=== PATIENT | female | born 1970 | race Caucasian/White ===

== ENCOUNTER → 2018-09-23 18:30 | Outpatient (CLI) | payer BC | END | disposition home or self-care (01) | LOC: D.MAMMO 14:15 | DX: Z12.31 Encounter for screening mammogram for malignant neoplasm of breast (principal) ==

== ENCOUNTER 2020-03-24 09:35 | Day surgery (SDC) | payer BC ==
[2020-03-23 11:34] LABS: HEMATOCRIT 39.3 % (36.0-48.0); HEMOGLOBIN 12.5 g/dL (12-16); MCH 28.6 pg (26.0-34.0); MCHC 31.8 g/dL (31.0-37.0); MCV 89.9 fL (80.0-100.0); MEAN PLATELET VOLUME 8.8 fL (7.4-10.4); RBC 4.37 10x6/uL (4.00-5.40); WBC 8.7 10x3/uL (4.8-10.8)
[~2020-03-24] VITALS: Ht 172.7 cm; Wt 94.8 kg
[~2020-03-24 09:35] MED LIST: CLARITIN 10 MG10 MG PO; MULTI-DAY VITAM1 TAB PO; PROZAC40 MG PO; SYMBICORT 16010.2 GM INH
[2020-03-24 10:09] VITALS: BP 136/81; Ht 172.7 cm; Wt 94.8 kg
[2020-03-24 10:22] LABS: HCG URINE NEGATIVE (NEGATIVE)
[2020-03-24] MEDS ORDERED: PERCOCET 5-3251 TAB PO (13:24)
[2020-03-24] MEDS ORDERED: VISTARIL50 MG PO (13:25)
[2020-03-24] MEDS ORDERED: TORADOL10 MG PO (13:25)
[2020-03-24] MEDS ORDERED: ZOFRAN ODT4 MG/UDTAB PO (13:25)
--- NOTE | 2020-03-24 14:46 | NUR ---
DC INSTRUCTIONS GIVEN TO PT. STATES UNDERSTANDING. DC'D IV CATH FULLY INTACT.
--- NOTE | 2020-03-24 15:00 | NUR ---
PT IS DRESSED AND READY TO BE DC'D. WAITING FOR TO PICK HER UP. I CALLED AFTER PT ARRIVED TO OPS TO LET HIM KNOW THAT SHE'LL BE READY TO BE DC'D AT ABOUT [id number]. HE SAID HE WILL CALL WHEN HE IS AT THE FRONT ENTRANCE. WILL CONTINUE TO MONITOR.
--- NOTE | 2020-03-24 15:04 | NUR ---
PT LEFT UNIT VIA WC AT 1510
--- NOTE | 2020-03-25 10:34 | OP ---
PATIENT NAME: GERSON EDWARDS MEDICAL RECORD: [id number] :68 LOCATION:[facility] ADMISSION DATE: SURGEON: ARNEL PALOMARES DO DATE OF OPERATION: 03/24/2020 PROCEDURE PERFORMED: Right shoulder arthroscopy with subacromial decompression, distal clavicle excision, biceps tenodesis. PREOPERATIVE DIAGNOSES: Right shoulder subacromial impingement, AC joint arthritis, and SLAP tear. POSTOPERATIVE DIAGNOSES: Right shoulder subacromial impingement, AC joint arthritis, and SLAP tear. INDICATIONS: Ms. Leo Dos Santos is a 49-year-old female who has had right shoulder pain for quite some time. She has tried all manner of nonoperative treatment including physical therapy and injections to no avail. She had an MRI, which showed a type 2 acromion. It did not show a SLAP tear, but she had symptoms of it. When she did do all that and failed conservative management, she wants something done surgically as it was bothering her and affecting her activities of daily living. She is aware of the risks including infection, bleeding, damage to nerves and vessels, need for further surgery, continued pain, frozen shoulder, any other problems and she signed the consent. SURGEON: Arnel Palomares DO DESCRIPTION OF PROCEDURE: The patient had block by anesthesia preoperatively and taken to the operative suite, given 900 mg of clindamycin preoperatively in the left lateral decubitus position with the right shoulder up. She was sedated and LMA was placed. Right shoulder was then prepped and draped in sterile fashion. A timeout was performed and everyone was in agreement with correct side, site, patient and procedure. I then inserted an 18-gauge needle into the posterior aspect of the shoulder into the shoulder joint and inflated it with 60 mL normal saline then established a posterior portal with an 11-blade scalpel. Trocar was then entered into the shoulder joint had somewhat difficulty getting into it and then I switched to another portal slightly more lateral and got into the shoulder joint somewhat easier. The anterior portals had been established. An 18-gauge spinal needle and 11-blade scalpel at that time, and once that was established, a burner was brought in and a biceps tenotomy was performed noting the type 2 SLAP tear. The rotator cuffs were inspected subscapularis, supraspinatus and infraspinatus were all intact. There was no cartilage loss on the glenoid or the humerus. We then entered the subacromial space. An 18-gauge spinal needle was used to establish a lateral portal with a #11 blade scalpel. We then brought in the ayo and a shaver. Subacromial decompression was performed with acromioplasty. There was a type 2 acromion, which I took off that spur and then the AC joint was opened up also by resecting the distal clavicle; opened up the AC joint to approximately 7 mm. I then debrided the bursa and inspected the rotator cuff on the bursal side. No tears were seen. I then addressed the tenodesis. An incision was made on the anterior humerus. Careful dissection was made down to the long head of the biceps tendon. It was pulled out through the incision. A 2.9 Juggerloc anchor was then put in and the tendon was put through the loop and tensioned in full and the loop was secured down to the humerus. I then cut the excess suture took us a free needle and went back through the tendon and tied that down and then cut the excess tendon and suture. This was then irrigated and Mat Yang, certified surgical first OPERATIVE REPORT [id number] GERSON EDWARDS content assistant then closed the portal sites with 4-0 Monocryl in an inverted interrupted fashion and dressed with Dermabond and then the biceps tenodesis site was closed with 2-0 Vicryl in inverted interrupted fashion, 4-0 Monocryl ran on the skin in a subcuticular fashion and then Dermabond. She was then dressed with Telfa and Tegaderm and she was awakened, put in a sling and taken to recovery in stable condition. ESTIMATED BLOOD LOSS: Minimal. SPECIMENS: None. TRANSINT:[id number] Voice Confirmation ID: [id number] DOCUMENT ID: [id number] ARNEL PALOMARES DO at 1034 CC: [id number] DICTATION DATE: 03/24/20 1423 MOTORCYCLE MECHANIC: 03/24/202007 [facility] 03/24/20 [id number] [place] [address]
== END 2020-03-24 15:10 | disposition home or self-care (01) ==
LOC: D.OPS 09:35
PROVIDERS: Anesthesiology; ATTEND Orthopaedic Surgery
DX: M25.811 Other specified joint disorders, right shoulder (principal); M19.011 Primary osteoarthritis, right shoulder; S43.431A Superior glenoid labrum lesion of right shoulder, initial encounter; X58.XXXA Exposure to other specified factors, initial encounter

== ENCOUNTER 2020-06-30 06:01 | Day surgery (SDC) | payer BC ==
[~2020-06-30] VITALS: Ht 172.7 cm; Wt 88.6 kg
[~2020-06-30 06:01] MED LIST changes: +PERCOCET 5-3251 TAB PO; +TORADOL10 MG PO; +VISTARIL50 MG PO; +ZOFRAN ODT4 MG/UDTAB PO
[2020-06-30 07:51] VITALS: BP 138/87; Ht 172.7 cm; Wt 88.6 kg
[2020-06-30] MEDS ORDERED: PERCOCET 5-3251 TAB PO (08:33)
[2020-06-30 08:43] LABS: HCG SERUM NEGATIVE (NEGATIVE)
[2020-06-30 08:53] LABS: HEMATOCRIT 39.7 % (36.0-48.0); HEMOGLOBIN 12.5 g/dL (12-16); MCH 27.8 pg (26.0-34.0); MCHC 31.5 g/dL (31.0-37.0); MCV 88.4 fL (80.0-100.0); MEAN PLATELET VOLUME 9.4 fL (7.4-10.4); RBC 4.49 10x6/uL (4.00-5.40); RDW 14.1 % (11.5-14.5); WBC 8.7 10x3/uL (4.8-10.8)
--- NOTE | 2020-07-03 08:17 | OP ---
PATIENT NAME: GERSON EDWARDS MEDICAL RECORD: [id number] :68 LOCATION:[facility] ADMISSION DATE: SURGEON: JOSE R PALOMARES DO DATE OF OPERATION: 06/30/2020 PROCEDURE PERFORMED: Right shoulder scope with lysis of adhesions and manipulation under anesthesia. PREOPERATIVE DIAGNOSIS: Right shoulder adhesive capsulitis. POSTOPERATIVE DIAGNOSIS: Right shoulder adhesive capsulitis. INDICATIONS: Ms. Barrera is a 50-year-old female well known to me, who underwent a right bicep tenodesis as well as a distal clavicle excision and subacromial decompression approximately 4 months ago. She was doing well until a few months ago when she started to lose her motion of her shoulder. I informed her we need to get on this and warned her that she would be forming performing adhesive capsulitis. Tried an injection that did not work very well and therapy. She continued to scar down and did not have hardly any range of motion. She is to the point where she is tired of dealing with it and I told her we have to do a manipulation under anesthesia. I would lysed the adhesions first with a burner and a shaver and she would be at increased risk for tear of rotator cuff, it could be fracture of the humerus as well and bleeding, continued pain, recurrence of adhesive capsulitis. She is aware of all that and signed the consent. SURGEON: Jose R Palomares DO DESCRIPTION OF PROCEDURE: The patient was taken to the operative suite, laid in the left lateral decubitus position with the right shoulder up. She was then sedated and LMA was placed. She was given 900 mg of clindamycin and a block prior to starting from anesthesia. The right shoulder was then prepped and draped in sterile fashion. Timeout was performed, everyone was in agreement with the correct side, site, patient and procedure. I then had somewhat difficulty, but I inflated the joint with 60 cc of normal saline through the posterior portal. She had a significant amount of tightness in the joint, I then had a difficult time getting into the joint due to the tightness. I did a subacromial look first and then went to the subacromial space, entered it with the camera and established lateral portal with 18-gauge spinal needle and 11-blade scalpel and then cleaned up the subacromial space, took out any bursa that was there. I then went to the anterior portal, established with an 11-blade scalpel and entered the shoulder joint through the anterior portal. I then got into the posterior portal into the joint and through the anterior portal, brought in the shaver and a burner and resected all of these a significant amount of scar tissue that was there and adhesions that were in the anterior portion of the shoulder in the rotator interval. Once that was all excised, I did a manipulation under anesthesia and got her full range of motion with external rotation to 90, abduction of 0 over the elbow at the side and then 180 degrees of forward flexion and abduction and then abduction to 90 and got full external and internal rotation. Had a good release upon doing these. I did have to have establish a second posterior portal to get into the shoulder joint prior to doing the adhesiolysis with an 11-blade scalpel. The portal sites were then closed with 4-0 Monocryl in inverted interrupted fashion and dressed with Dermabond, Telfa and Tegaderm. She is awakened, put in a sling and taken to recovery in stable condition. OPERATIVE REPORT [id number] GERSON EDWARDS BLOOD LOSS: Minimal. COMPLICATIONS: None. TRANSINT:[id number] Voice Confirmation ID: [id number] DOCUMENT ID: [id number] JOSE R PALOMARES DO at 0817 CC: [id number] DICTATION DATE: 06/30/20 1333 CARBURIZING FURNACE OPERATOR: 07/01/[address] [facility] 06/30/20 [id number] [place] [id number]
== END 2020-06-30 11:15 | disposition home or self-care (01) ==
LOC: D.OPS 06:01 → D.PAN 08:40 → D.OPS 09:00 → D.PAN 10:30 → D.OPS 11:15 → D.PAN 11:15
PROVIDERS: Anesthesiology; ATTEND Orthopaedic Surgery
DX: M75.01 Adhesive capsulitis of right shoulder (principal)